=== PATIENT | male | born 2000 | race African-American/Black ===

== ENCOUNTER 2024-09-18 21:05 | Emergency (ER) | payer OTHER, SELFPAY ==
[2024-09-18] MEDS ORDERED: NA CHLORIDE 0.9% 1,000 ML ONE (23:02)
[2024-09-18 23:31] LABS: Absolute Eosinophils 0.3 K/uL (0-0.5); Absolute Lymphocytes (CBC) 2.3 K/uL (0.7-4.9); Absolute Monocytes 0.7 K/uL (0.1-1.3); Absolute Neutrophil 3.9 K/uL (1.8-8.0); Basophils % 0.4 % (0-1.3); Eosinophils % 3.5 % (0-4.4); Hematocrit 42.7 % (39.6-49.0); Hemoglobin 14.6 g/dL (13.6-17.9); Lymphocytes % 32.2 % (15.3-44.8); MCH 31.5 pg (27.0-35.0); MCHC 34.2 g/dL (32.0-36.0); MCV 92.3 fL (80-100); MPV 7.1 fL (7.6-11.3); Monocytes % 10.2 % (3.3-12.3); Neutrophils % 53.7 % (41.7-73.7); Nucleated Red Blood Cells % 0.1 % (0-0); Platelets 218 thou/uL (152-406); RBC Red Blood Cell Count 4.62 M/uL (4.33-5.43); Red Cell Distribution Width 12.8 % (12.1-15.2)
[2024-09-18 23:49] LABS: ALT/SGPT 23 U/L (16-61); Albumin 3.7 g/dL (3.4-5.0); Albumin/Globulin Ratio 1.2 (1.1-1.8); Alkaline Phosphatase 70 U/L (45-117); BUN Blood Urea Nitrogen 11 mg/dL (7-18); Bicarbonate 26 mEq/L (21-32); Globulin 3.2 g/dL (2.3-3.5); Glomerular Filtration Rate 103 ml/min (=/>90); Glucose Level 96 mg/dL (74-106); Lipase 33 U/L (13-75); Protein, Total 6.9 g/dL (6.4-8.2); Sodium Level 140 mEq/L (136-145)
[2024-09-18 23:51] LABS: AST/SGOT 19 U/L (15-37); Bilirubin Total < 0.2 mg/dL (0.2-1.0)
[2024-09-19 00:11] LABS: SARS-CoV-2 Antigen CONTROL BLUE LINE VIS/BG OK; SARS-CoV-2 Antigen Rapid Res Negative (Negative)
--- NOTE | 2024-09-19 00:16 | ER ---
Nurse's Notes [facility] Name: Ede Carey Jr Age: 24 yrs Sex: Male : 2000 Arrival Date: 09/18/2024 Time: 21:05 Bed 8 Private MD: Diagnosis: Diarrhea, unspecified Presentation: 09/18 21:20 Chief complaint: Headache and diarrhea since this morning. Coronavirus screen: At this hb time, the client does not indicate any symptoms associated with coronavirus-19. Ebola Screen: No symptoms or risks identified at this time. Initial Sepsis Screen: Does the patient meet any 2 criteria? No. Patient's initial sepsis screen is negative. Does the patient have a suspected source of infection? No. Patient's initial sepsis screen is negative. Risk Assessment: Do you want to hurt yourself or someone else? Patient reports no desire to harm self or others. Onset of symptoms was September 18, 2024. 21:20 Method Of Arrival: Ambulatory hb 21:20 Acuity: LOLA 3 hb Triage Assessment: 09/19 00:23 GI: Reports diarrhea. bm8 Historical: - Allergies: 09/18 21:22 No Known Allergies; hb - Home Meds: 21:22 None [Active]; hb - PMHx: 21:22 None; hb - PSHx: 21:22 Right Arm; hb - Immunization history:: Adult Immunizations up to date. - Infectious Disease History:: Denies. - Social history:: Smoking status: Patient denies any tobacco usage or history of. Screenin:17 [facility] ED Fall Risk Assessment (Adult) History of falling in the last 3 months, bm8 including since admission No falls in past 3 months (0 pts) Confusion or Disorientation No (0 pts) Intoxicated or Sedated No (0 pts) Impaired Gait No (0 pts) Mobility Assist Device Used No (0 pt) Altered Elimination No (0 pt) Score/Fall Risk Level 0 - 2 = Low Risk Oriented to surroundings, Maintained a safe environment, Educated pt \T\ family on fall prevention, incl call for assistance when getting out of bed, Assessed \T\ reinforced patient's understanding of fall precautions, Hourly rounding (assess needs \T\ fall precautionary measures) done, Used ambulatory aids as needed (educated on \T\ assisted with), Used gait belt as appropriate. Abuse screen: Denies threats or abuse. Nutritional screening: No deficits noted. Tuberculosis screening: No symptoms or risk factors identified. Assessment: 23:15 Reassessment: Patient appears in no apparent distress at this time. Patient and/or bm8 family updated on plan of care and expected duration. Pain level reassessed. Patient is alert, oriented x 3, equal unlabored respirations, skin warm/dry/pink. General: Appears in no apparent distress. comfortable, Behavior is calm, cooperative, appropriate for age. Pain: Denies pain. Neuro: No deficits noted. Level of Consciousness is awake, alert, obeys commands, Oriented to person, place, time, situation, Appropriate for age. Cardiovascular: Heart tones S1 S2 present Capillary refill < 3 seconds in bilateral fingers Patient's skin is warm and dry. 23:48 Reassessment: Patient appears in no apparent distress at this time. Patient and/or bm8 family updated on plan of care and expected duration. Pain level reassessed. Patient is alert, oriented x 3, equal unlabored respirations, skin warm/dry/pink. Patient denies pain at this time. GI: Patient currently denies nausea, pain, vomiting. Vital Signs: 21:20 BP 122 / 74; Pulse 75; Resp 16; Temp 98.7(O); Pulse Ox 100% on R/A; Weight 93.89 kg; hb Height 6 ft. 3 in. ; Pain 3/10; 23:17 BP 111 / 77; Pulse 62; Resp 15; Temp 97.8; Pulse Ox 98% ; Weight 93.89 kg; Height 6 ft. bm8 3 in. ; Pain 0/10; 23:48 BP 119 / 79; Pulse 58; Resp 18; Temp 97.8; Pulse Ox 100% ; bm8 23:17 Body Mass Index 25.87 (93.89 kg, 190.5 cm) bm8 21:20 Pain Scale: Adult hb 23:17 Pain Scale: Adult bm8 [place] Coma Score: 23:17 Eye Response: spontaneous(4). Motor Response: obeys commands(6). Verbal Response: bm8 oriented(5). Total: 15. 23:48 Eye Response: spontaneous(4). Motor Response: obeys commands(6). Verbal Response: bm8 oriented(5). Total: 15. ED Course: 21:09 Patient arrived in ED. ra3 21:15 Corine Mcmullen FNP-C [facility]. kb 21:15 Kenton Shrestha MD is Attending Physician. kb 21:22 Triage completed. hb 21:22 Arm band placed on. hb 23:15 Lauro Robert, RN is Primary Nurse. bm8 23:16 CBC with Diff Sent. vk 23:16 CMP Sent. vk 23:16 Lipase Sent. vk 23:16 SARS-COV-2 Antigen Rapid Sent. vk 23:16 Flu Sent. vk 23:16 Initial lab(s) drawn, by ED staff. vk 23:17 Patient has correct armband on for positive identification. Bed in low position. Call bm8 light in reach. Side rails up X 1. Client placed on continuous cardiac and pulse oximetry monitoring. NIBP monitoring applied. Pulse ox on. NIBP on. Door closed. Noise minimized. Warm blanket given. Pillow given. Verbal reassurance given. Head of bed. 23:17 No provider procedures requiring assistance completed. COVID swab sent to lab. Flu bm8 and/or RSV swab sent to lab. Inserted saline lock: 20 gauge in right antecubital area, using aseptic technique. Blood collected. Flushed with 10 mL NS. 09/19 00:23 Provided Education on: post er care. bm8 00:23 IV discontinued, intact, bleeding controlled, No redness/swelling at site. Pressure bm8 dressing applied. Administered Medications: 09/18 23:18 Drug: NS 0.9% IV 1000 ml IV at 1 bolus Per protocol; to be given as a bolus over 60 bm8 minutes Route: IV; Rate: 1 bolus; Site: right antecubital; 09/19 00:24 Follow up: Response: No adverse reaction; IV Status: Completed infusion; IV Intake: bm8 1000ml Medication: 09/18 23:17 VIS not applicable for this client. bm8 Intake: 09/19 00:24 IV: 1000ml; Total: 1000ml. bm8 Outcome: 00:15 Discharge ordered by . kb 00:23 Discharged to home ambulatory, bm8 00:23 Condition: stable 00:23 Discharge instructions given to patient, Instructed on discharge instructions, follow up and referral plans. Demonstrated understanding of instructions, follow-up care, 00:24 Patient left the ED. bm8 Signatures: Corine Mcmullen FNP-C RECYCLING CENTER OPERATOR-Nicole Jo, RN RN hb Christina aGviria ra3 Melba Kemp Brad, RN RN bm8 Corrections: (The following items were deleted from the chart) 09/18 21:22 21:22 PSHx: Unable to Obtain; hb hb
--- NOTE | 2024-09-19 00:16 | EDPHYS ---
Physician Documentation [facility] Name: Ede Carey Jr Age: 24 yrs Sex: Male : 2000 Arrival Date: 09/18/2024 Time: 21:05 Bed 8 Private MD: ED Physician Kenton Shrestha HPI: 09/18 23:18 This 24 yrs old Black Male presents to ER via Ambulatory with complaints of Diarrhea, kb Headache. 23:18 Pt is a 24 year old male who presents for diarrhea and headache that started this kb morning. Denies abd pain, nausea, vomiting, fever. . Historical: - Allergies: 21:22 No Known Allergies; hb - Home Meds: 21:22 None [Active]; hb - PMHx: 21:22 None; hb - PSHx: 21:22 Right Arm; hb - Immunization history:: Adult Immunizations up to date. - Infectious Disease History:: Denies. - Social history:: Smoking status: Patient denies any tobacco usage or history of. ROS: 23:18 Constitutional: As per HPI kb Exam: 23:18 Constitutional: This is a well developed, well nourished patient who is awake, alert, kb and in no acute distress. Head/Face: Normocephalic, atraumatic. ENT: Moist Mucous membranes Cardiovascular: Regular rate Respiratory: Respirations even and unlabored. No increased work of breathing. Talking in full sentences Abdomen/GI: Soft, non-tender. No distention Skin: Warm, dry with normal turgor. Normal color. MS/ Extremity: Pulses equal, no cyanosis. Neurovascular intact. Full, normal range of motion. Neuro: Awake and alert, GCS 15, oriented to person, place, time, and situation. Vital Signs: 21:20 BP 122 / 74; Pulse 75; Resp 16; Temp 98.7(O); Pulse Ox 100% on R/A; Weight 93.89 kg; hb Height 6 ft. 3 in. ; Pain 3/10; 23:17 BP 111 / 77; Pulse 62; Resp 15; Temp 97.8; Pulse Ox 98% ; Weight 93.89 kg; Height 6 ft. bm8 3 in. ; Pain 0/10; 23:48 BP 119 / 79; Pulse 58; Resp 18; Temp 97.8; Pulse Ox 100% ; bm8 23:17 Body Mass Index 25.87 (93.89 kg, 190.5 cm) bm8 21:20 Pain Scale: Adult hb 23:17 Pain Scale: Adult bm8 [place] Coma Score: 23:17 Eye Response: spontaneous(4). Motor Response: obeys commands(6). Verbal Response: bm8 oriented(5). Total: 15. 23:48 Eye Response: spontaneous(4). Motor Response: obeys commands(6). Verbal Response: bm8 oriented(5). Total: 15. MDM: 21:15 Medical Screening Exam initiated kb 09/19 00:14 Data reviewed: vital signs, nurses notes. kb 00:14 Differential diagnosis: diverticulitis, viral gastroenteritis, dehydration, abnormal kb electrolytes. Test considered but Not performed: CT: ct considered but pt has no abd tenderness or pain. Counseling: I had a detailed discussion with the patient and/or guardian regarding the historical points, exam findings, and any diagnostic results supporting the discharge/admit diagnosis, lab results, the need for outpatient follow up, a family practitioner, to return to the emergency department if symptoms worsen or persist or if there are any questions or concerns that arise at home. 09/18 21:21 Order name: CBC with Diff; Complete Time: 23:52 kb 09/18 21:21 Order name: CMP; Complete Time: 23:52 kb 09/18 21:21 Order name: Lipase; Complete Time: 23:52 kb 09/18 21:21 Order name: Flu; Complete Time: 00:14 kb 09/18 21:21 Order name: SARS-COV-2 Antigen Rapid; Complete Time: 00:14 kb 09/18 21:21 Order name: IV Saline Lock; Complete Time: 23:16 kb 09/18 21:21 Order name: Labs collected and sent; Complete Time: 23:16 kb Administered Medications: 09/18 23:18 Drug: NS 0.9% IV 1000 ml IV at 1 bolus Per protocol; to be given as a bolus over 60 bm8 minutes Route: IV; Rate: 1 bolus; Site: right antecubital; 09/19 00:24 Follow up: Response: No adverse reaction; IV Status: Completed infusion; IV Intake: bm8 1000ml Disposition Summary: 09/19/24 00:15 Discharge Ordered Notes: Location: Home kb Condition: Stable kb Diagnosis - Diarrhea, unspecified kb Followup: kb - With: Emergency Department - When: As needed - Reason: Worsening of condition Followup: kb - With: Private Physician - When: 2 - 3 days - Reason: Recheck today's complaints, Continuance of care, Re-evaluation by your physician Discharge Instructions: - Discharge Summary Sheet kb - Food Choices to Help Relieve Diarrhea, Adult kb - Diarrhea, Adult, [id number] kb Forms: - Medication Reconciliation Form kb - Antibiotic Education kb - Prescription Opioid Use kb - Patient Portal Instructions kb - Leadership Thank You Letter kb Addendum: 09/20/2024 02:16 Co-signature as Attending Physician, Kenton Shrestha MD I agree with the assessment s p4 and plan of care. I reviewed the patient's care provided by the Advanced Practice Provider and agree with the diagnosis and treatment plan. Signatures: Dispatcher [employer] EDSC Corine Mcmullen, ELECTRO MECHANICAL DESIGNER-C ELECTRO MECHANICAL DESIGNER-Ckb Nicole Hilton, RN RN Kenton Shrestha MD MD sp4 Lauro Robert, RN RN bm8 Corrections: (The following items were deleted from the chart) 09/18 21:21 21:21 CBC+H.LAB.BRZ ordered. EDMS EDMS 21:21 21:21 COMPREHENSIVE METABOLIC PANEL+C.LAB.BRZ ordered. EDMS EDMS 21:21 21:21 LIPASE+C.LAB.BRZ ordered. EDMS EDMS 21:21 21:21 Influenza Screen (A \T\ B)+BA.LAB.BRZ ordered. EDMS EDMS 21:21 21:21 SARS-COV-2 Antigen Rapid+I.LAB.BRZ ordered. EDMS EDMS 21:22 21:22 PSHx: Unable to Obtain; hb hb
[2024-09-19 01:34] VITALS: TEMP 97.8
[2024-09-19 01:35] VITALS: BP 119/79; O2SAT 100
== END 2024-09-19 00:24 | disposition home or self-care (01) ==
LOC: ER 21:05
DX: R19.7 Diarrhea, unspecified (principal); R51.9 Headache, unspecified; Z11.52 Encounter for screening for COVID-19
CPT/HCPCS: 36415; 80053; 83690; 85025; 87804; 87811; 96360; 99284; J7030